=== PATIENT | female | born 1950 | race African-American/Black ===

== ENCOUNTER 2018-12-30 15:27 | Emergency (ER) | payer MEDICARE ==
[~2018-12-30] VITALS: Ht 160 cm; Wt 105.0 kg
[~2018-12-30 15:27] MED LIST: ACET-2502 PO; ALBU18HF2 IH; AMIT100T2 MT; AMLO2.5T45 PO; ASCO-339 MT; ASCO500C15 MT; ASPI-1393 MT; BACL-141 MT; BUSP15TA3 MT; CHOL200077 MT; DOCU50CA13 PO; DONE10TA11 MT; FERR325T6 MT; FOLI-43 MT; GLYB5TAB7 MT; HYDR2TAB4 MT; LEVE500T9 MT; LEVO100T PO; LIP40 MT; LURA80TA MT; MELO-106 MT; METF-416 MT; METO25TA6 PO; NEOM1PAC2 TP; NICO-681 TD; NICO-786 TD; NITR0.4T49 SL; PANT40TA4 MT; PREG75CA MT; SUCR1TAB MT; TOPI50TA24 MT; VENL75CA55 MT
[2018-12-30] MEDS ORDERED: HYDROCODONE/ACETAMINOPHEN 10/325MG TABLET PO ONE (18:15)
[2018-12-30] MEDS ORDERED: VENLAFAXINE HCL 50MG TABLET PO ONE (21:00)
[2018-12-30] MEDS ORDERED: AMITRIPTYLINE 25MG TABLET PO ONE (21:00)
[2018-12-31 08:59] VITALS: BP 145/66
== END 2018-12-31 09:02 | disposition home or self-care (01) ==
LOC: ER 15:27
DX: R07.89 Other chest pain (principal); R26.2 Difficulty in walking, not elsewhere classified; Z59.0 Homelessness; F17.200 Nicotine dependence, unspecified, uncomplicated; F12.10 Cannabis abuse, uncomplicated; E11.9 Type 2 diabetes mellitus without complications; I10 Essential (primary) hypertension; I25.2 Old myocardial infarction; Z86.73 Personal history of transient ischemic attack (TIA), and cerebral infarction without residual deficits; Z90.89 Acquired absence of other organs; E03.9 Hypothyroidism, unspecified; Z79.82 Long term (current) use of aspirin; Z79.899 Other long term (current) drug therapy; Z88.5 Allergy status to narcotic agent; Z88.6 Allergy status to analgesic agent; Z88.2 Allergy status to sulfonamides; Z88.0 Allergy status to penicillin
CPT/HCPCS: 82962; 99284

== ENCOUNTER 2019-03-23 16:24 | Inpatient (IN) | payer MEDICARE, MEDICAID ==
[~2019-03-23] VITALS: Ht 160 cm; Wt 106.6 kg
[2019-03-23] MEDS ORDERED: LEVOFLOXACIN 750MG PREMIX 150 ML IV ONE (17:00)
[2019-03-23] MEDS ORDERED: SODIUM CHLORIDE 0.9% 1000ML BAG (SEPSIS BOLUS) IV ONE (17:00)
[2019-03-23 17:37] LABS: BASOPHILS % 0.7 % (0.0-2.0); EOSINOPHILS % 2.5 % (0.0-5.0); HEMATOCRIT. 44.4 % (36.0-48.0); HEMOGLOBIN. 14.7 g/dL (12.0-16.0); LYMPHOCYTES % 27.4 % (20.0-50.0); MEAN CORPUSCULAR HEMOGLOBIN 30.2 pg (28.0-32.0); MEAN CORPUSCULAR VOLUME 91.5 fL (81.0-99.0); MEAN PLATELET VOLUME 8.9 fl (7.4-10.4); MONOCYTES % 7.8 % (2.0-8.0); NEUTROPHILS % 61.6 % (40.0-76.0); PLATELET 299 x1000/uL (130-400); RED BLOOD CELL COUNT 4.86 mill/uL (4.2-5.4); RED CELL DISTRIBUTION WIDTH 16.9 % (11.6-14.6)
[2019-03-23 17:41] LABS: CHLORIDE 105 mEq/L (98-107)
[2019-03-23] MEDS ORDERED: MORPHINE SULFATE 4 MG/ML CPJ (NOT FOR IM USE) IV STA (17:44)
[2019-03-23] MEDS ORDERED: ONDANSETRON HCL 4MG/2ML INJ IV STA (17:44)
[2019-03-23] MEDS ORDERED: NITROGLYCERIN 0.4MG TABLET SL SL PRN (17:45)
[2019-03-23 17:47] LABS: D-DIMER 0.23 mg/L FEU (<0.50); PARTIAL THROMBOPLASTIN TIME 24.1 sec (23.4-31.0); PROTHROMBIN TIME 10.1 sec (9.6-11.0)
[2019-03-23] MEDS ORDERED: POTASSIUM CHLORIDE 20MEQ TABLET SR PO ONE (18:00)
[2019-03-23] MEDS ORDERED: CLOPIDOGREL 75MG TABLET PO ONE (18:00)
[2019-03-23] MEDS ORDERED: ALBUTEROL (0.083%) 2.5MG/3ML NEB HHN STA (18:32)
[2019-03-23 22:05] VITALS: BP 152/84
[2019-03-23 23:00] VITALS: BP 152/84
[2019-03-23] MEDS ORDERED: DEXTROSE 50% WATER 50ML SYRINGE IV PRN (23:45)
[2019-03-24] VITALS (8 sets, daily range): BP systolic 133–188; BP diastolic 45–164
[2019-03-24] MEDS ORDERED: ACETAMINOPHEN 325MG TABLET PO PRN (00:15)
[2019-03-24] MEDS ORDERED: MORPHINE SULFATE 2 MG/ML CPJ (NOT FOR IM USE) IV PRN (00:15)
[2019-03-24] MEDS: DIPHENHYDRAMINE 50MG/ML VIAL IV PRN ×2 (00:40→07:03)
[2019-03-24] MEDS: THIAMINE HCL 100MG TABLET PO SCH ×2 (00:40→11:33)
[2019-03-24] MEDS: ONDANSETRON HCL 4MG/2ML INJ IV PRN ×3 (00:40→20:58)
[2019-03-24] MEDS: HYDROCODONE/ACETAMINOPHEN 5/325MG TABLET PO PRN ×2 (00:44→07:02)
[2019-03-24] MEDS: IPRATROPIUM/ALBUTEROL 0.5-3(2.5)MG/3ML NEB NEB PRN (06:50)
[2019-03-24] MEDS: BLOOD SUGAR DIAGNOSTIC STRIP TEST SCH ×4 (07:03→20:59)
[2019-03-24] MEDS: INSULIN LISPRO 100 UNITS/ML SUBCUT SCH ×4 (07:50→21:33)
[2019-03-24 08:03] LABS: CREATINE KINASE 164 IU/L (26-192)
[2019-03-24 08:04] LABS: CREATINE KINASE MB FRACTION 2.6 ng/mL (0.5-3.6)
[2019-03-24] MEDS ORDERED: HYDROMORPHONE HCL/PF 2MG/ML CPJ IV NR (10:30)
[2019-03-24] MEDS: FOLIC ACID 1MG TABLET PO SCH (11:33)
[2019-03-24] MEDS: ASPIRIN 81MG EC TABLET PO SCH (11:33)
[2019-03-24] MEDS ORDERED: HYDROMORPHONE HCL 2MG TABLET PO PRN (13:00)
[2019-03-24 13:19] LABS: BASOPHILS % 0.8 % (0.0-2.0); HEMATOCRIT. 39.8 % (36.0-48.0); HEMOGLOBIN. 12.8 g/dL (12.0-16.0); LYMPHOCYTES % 26.5 % (20.0-50.0); MEAN CORPUSCULAR HEMOGLOBIN 29.7 pg (28.0-32.0); MEAN CORPUSCULAR VOLUME 92.6 fL (81.0-99.0); MONOCYTES % 9.5 % (2.0-8.0); NEUTROPHILS % 59.2 % (40.0-76.0); PLATELET 252 x1000/uL (130-400); RED BLOOD CELL COUNT 4.29 mill/uL (4.2-5.4); RED CELL DISTRIBUTION WIDTH 16.4 % (11.6-14.6)
[2019-03-24] MEDS ORDERED: DOCUSATE SODIUM 100MG CAPSULE PO PRN (15:00)
[2019-03-24] MEDS ORDERED: DONEPEZIL HCL 10MG TABLET PO NR (15:00)
[2019-03-24] MEDS: LEVOFLOXACIN 750MG PREMIX 150 ML IV SCH (16:25)
[2019-03-24] MEDS: NICOTINE 14MG PATCH TD SCH (16:25)
[2019-03-24 20:52] LABS: CREATINE KINASE 151 IU/L (26-192)
[2019-03-24 20:54] LABS: CREATINE KINASE MB FRACTION 1.7 ng/mL (0.5-3.6)
[2019-03-24] MEDS: MAGNESIUM/ALUMINUM HYDROXIDE/SIMETHICONE 30ML UDC PO PRN (20:56)
[2019-03-24] MEDS: AMITRIPTYLINE 25MG TABLET PO SCH (20:57)
[2019-03-24] MEDS: BUSPIRONE HCL 10MG TABLET PO SCH (20:58)
[2019-03-24] MEDS: ATORVASTATIN CALCIUM 40MG TABLET PO SCH (20:58)
[2019-03-24] MEDS ORDERED: LEVETIRACETAM 500MG/5ML CUP PO SCH (21:00)
[2019-03-24] MEDS: PANTOPRAZOLE 40MG DR TABLET PO SCH (21:32)
[2019-03-24] MEDS: BENZONATATE 100MG CAPSULE PO PRN (21:32)
[2019-03-24] MEDS: LEVETIRACETAM 500MG TABLET PO SCH (21:32)
[2019-03-24 22:46] LABS: CLARITY URINE CLEAR (CLEAR); COLOR URINE YELLOW (YELLOW); KETONES URINE NEGATIVE (NEGATIVE); LEUKOCYTE ESTERASE URINE NEGATIVE (NEGATIVE); NITRITE URINE NEGATIVE (NEGATIVE); OCCULT BLOOD URINE NEGATIVE (NEGATIVE); PH URINE 5.5 (4.5-8.0); PROTEIN URINE TRACE (NEGATIVE); SPECIFIC GRAVITY URINE 1.024 (1.005-1.030)
[2019-03-24 23:01] LABS: *COCAINE SCREEN URINE NEGATIVE (NEGATIVE); METHADONE URINE SCREEN NEGATIVE (NEGATIVE)
[2019-03-24 23:02] LABS: *AMPHETAMINES SCREEN URINE NEGATIVE (NEGATIVE); *BARBITURATES SCREEN URINE NEGATIVE (NEGATIVE); *BENZODIAZEPINES SCREEN URINE NEGATIVE (NEGATIVE); CANNABINOID URINE SCREEN PRESUMTIVE POSITIVE (NEGATIVE); OPIATES URINE SCREEN PRESUMTIVE POSITIVE (NEGATIVE); PHENCYCLIDINE URINE SCREEN NEGATIVE (NEGATIVE)
[2019-03-25] VITALS: BP 120/60
[2019-03-25] MEDS: IPRATROPIUM/ALBUTEROL 0.5-3(2.5)MG/3ML NEB NEB PRN ×2 (01:03→08:14)
[2019-03-25 04:00] VITALS: BP 133/69
[2019-03-25 06:41] LABS: HEMATOCRIT. 37.4 % (36.0-48.0); HEMOGLOBIN. 12.1 g/dL (12.0-16.0); MEAN CORPUSCULAR HEMOGLOBIN 29.9 pg (28.0-32.0); MEAN CORPUSCULAR VOLUME 92.1 fL (81.0-99.0); MEAN PLATELET VOLUME 9.5 fl (7.4-10.4); PLATELET 246 x1000/uL (130-400); RED BLOOD CELL COUNT 4.06 mill/uL (4.2-5.4); RED CELL DISTRIBUTION WIDTH 16.5 % (11.6-14.6)
[2019-03-25] MEDS: PANTOPRAZOLE 40MG DR TABLET PO SCH (06:45)
[2019-03-25] MEDS: LEVOTHYROXINE SODIUM 100MCG TABLET PO SCH (06:45)
[2019-03-25] MEDS: BENZONATATE 100MG CAPSULE PO PRN ×2 (06:45→22:31)
[2019-03-25] MEDS: BLOOD SUGAR DIAGNOSTIC STRIP TEST SCH ×3 (06:46→21:00)
[2019-03-25] MEDS: INSULIN LISPRO 100 UNITS/ML SUBCUT SCH ×3 (07:50→21:00)
[2019-03-25 08:09] VITALS: BP 134/63
[2019-03-25] MEDS: ASPIRIN 81MG EC TABLET PO SCH (09:42)
[2019-03-25] MEDS: TOPIRAMATE 25MG TABLET PO SCH (09:42)
[2019-03-25] MEDS: BUSPIRONE HCL 10MG TABLET PO SCH ×2 (09:42→21:57)
[2019-03-25] MEDS: DONEPEZIL HCL 10MG TABLET PO SCH (09:43)
[2019-03-25] MEDS: THIAMINE HCL 100MG TABLET PO SCH (09:43)
[2019-03-25] MEDS: LEVETIRACETAM 500MG TABLET PO SCH ×2 (09:43→21:57)
[2019-03-25] MEDS: FOLIC ACID 1MG TABLET PO SCH (09:43)
[2019-03-25] MEDS: AMLODIPINE 2.5MG TABLET PO SCH (09:46)
[2019-03-25] MEDS: VENLAFAXINE HCL 37.5MG SR CAPSULE 24HR PO SCH (09:46)
[2019-03-25] MEDS: NICOTINE 14MG PATCH TD SCH (09:47)
[2019-03-25 10:09] LABS: PLATELET ESTIMATE NORMAL
[2019-03-25 12:00] VITALS: BP 166/84
[2019-03-25] MEDS ORDERED: POTASSIUM CHLORIDE 20MEQ TABLET SR PO SCH (12:00)
[2019-03-25] MEDS ORDERED: LORAZEPAM 2MG/ML CPJ IV SCH (14:30)
[2019-03-25] MEDS: IPRATROPIUM/ALBUTEROL 0.5-3(2.5)MG/3ML NEB HHN SCH ×2 (16:02→20:55)
[2019-03-25 16:45] VITALS: BP 138/63
[2019-03-25] MEDS: LEVOFLOXACIN 750MG PREMIX 150 ML IV SCH (17:01)
[2019-03-25 20:00] VITALS: BP 129/70
[2019-03-25] MEDS: ATORVASTATIN CALCIUM 40MG TABLET PO SCH (21:57)
[2019-03-25] MEDS: AMITRIPTYLINE 25MG TABLET PO SCH (21:58)
[2019-03-25] MEDS: MAGNESIUM/ALUMINUM HYDROXIDE/SIMETHICONE 30ML UDC PO PRN ×2 (22:21→22:28)
[2019-03-26] VITALS: BP 138/62
[2019-03-26] MEDS: IPRATROPIUM/ALBUTEROL 0.5-3(2.5)MG/3ML NEB HHN SCH ×4 (00:43→15:07)
[2019-03-26 04:00] VITALS: BP 134/67
[2019-03-26] MEDS: BLOOD SUGAR DIAGNOSTIC STRIP TEST SCH ×3 (06:37→17:17)
[2019-03-26] MEDS: PANTOPRAZOLE 40MG DR TABLET PO SCH (06:38)
[2019-03-26] MEDS: LEVOTHYROXINE SODIUM 100MCG TABLET PO SCH (06:38)
[2019-03-26] MEDS: INSULIN LISPRO 100 UNITS/ML SUBCUT SCH ×3 (07:50→17:17)
[2019-03-26 08:00] VITALS: BP 115/37
[2019-03-26] MEDS: NICOTINE 14MG PATCH TD SCH (08:48)
[2019-03-26] MEDS: THIAMINE HCL 100MG TABLET PO SCH (08:49)
[2019-03-26] MEDS: BUSPIRONE HCL 10MG TABLET PO SCH (08:49)
[2019-03-26] MEDS: VENLAFAXINE HCL 37.5MG SR CAPSULE 24HR PO SCH (08:49)
[2019-03-26] MEDS: ASPIRIN 81MG EC TABLET PO SCH (08:50)
[2019-03-26] MEDS: FOLIC ACID 1MG TABLET PO SCH (08:50)
[2019-03-26] MEDS: LEVETIRACETAM 500MG TABLET PO SCH (08:51)
[2019-03-26] MEDS: TOPIRAMATE 25MG TABLET PO SCH (08:52)
[2019-03-26] MEDS: AMLODIPINE 2.5MG TABLET PO SCH (08:52)
[2019-03-26] MEDS: DONEPEZIL HCL 10MG TABLET PO SCH (08:52)
[2019-03-26] MEDS: BENZONATATE 100MG CAPSULE PO PRN (11:34)
[2019-03-26 12:11] VITALS: BP 112/48
[2019-03-26] MEDS ORDERED: TOPI50TA24 MT (14:15)
[2019-03-26] MEDS ORDERED: AMLO2.5T45 PO (14:15)
[2019-03-26] MEDS ORDERED: SUCR1TAB MT (14:15)
[2019-03-26] MEDS ORDERED: LIP40 MT (14:15)
[2019-03-26] MEDS ORDERED: ASPI-1393 MT (14:15)
[2019-03-26] MEDS ORDERED: LURA80TA MT (14:15)
[2019-03-26] MEDS ORDERED: GLYB5TAB7 MT (14:15)
[2019-03-26] MEDS ORDERED: DOCU50CA13 PO (14:15)
[2019-03-26] MEDS ORDERED: PANT40TA4 MT (14:15)
[2019-03-26] MEDS ORDERED: ASCO-339 MT (14:15)
[2019-03-26] MEDS ORDERED: PREG75CA MT (14:15)
[2019-03-26] MEDS ORDERED: BUSP15TA3 MT (14:15)
[2019-03-26] MEDS ORDERED: ALBU18HF2 IH (14:15)
[2019-03-26] MEDS ORDERED: ACET-2502 PO (14:15)
[2019-03-26] MEDS ORDERED: NICO-786 TD (14:15)
[2019-03-26] MEDS ORDERED: METF-416 MT (14:15)
[2019-03-26] MEDS ORDERED: AMIT100T2 MT (14:15)
[2019-03-26] MEDS ORDERED: VENL75CA55 MT (14:15)
[2019-03-26] MEDS ORDERED: NICO-681 TD (14:15)
[2019-03-26] MEDS ORDERED: CHOL200077 MT (14:15)
[2019-03-26] MEDS ORDERED: MELO-106 MT (14:15)
[2019-03-26] MEDS ORDERED: DONE10TA11 MT (14:15)
[2019-03-26] MEDS ORDERED: LEVO100T PO (14:15)
[2019-03-26] MEDS ORDERED: LEVE500T9 MT (14:15)
[2019-03-26] MEDS: HYDROCODONE/ACETAMINOPHEN 5/325MG TABLET PO PRN (16:05)
[2019-03-26 16:18] VITALS: BP 108/47
[2019-03-26 16:33] VITALS: BP 108/47
[2019-03-26] MEDS: LEVOFLOXACIN 750MG PREMIX 150 ML IV SCH (17:00)
[2019-03-26] MEDS: IPRATROPIUM/ALBUTEROL 0.5-3(2.5)MG/3ML NEB NEB PRN (17:09)
== END 2019-03-26 17:52 | disposition home health service (06) | DRG 189 ==
LOC: ER 16:24 → 6WST 18:33 → EDBEDREQTM 18:38 → ENRESERV 20:58
PROVIDERS: ADMIT Internal Medicine; ATTEND Internal Medicine
DX: J96.00 Acute respiratory failure, unspecified whether with hypoxia or hypercapnia (principal); E87.2 Acidosis; Z68.41 Body mass index [BMI] 40.0-44.9, adult; J44.9 Chronic obstructive pulmonary disease, unspecified; E03.9 Hypothyroidism, unspecified; E11.9 Type 2 diabetes mellitus without complications; E78.5 Hyperlipidemia, unspecified; E87.6 Hypokalemia; F03.90 Unspecified dementia, unspecified severity, without behavioral disturbance, psychotic disturbance, mood disturbance, and anxiety; F17.210 Nicotine dependence, cigarettes, uncomplicated; G40.909 Epilepsy, unspecified, not intractable, without status epilepticus; E66.01 Morbid (severe) obesity due to excess calories; I10 Essential (primary) hypertension; I25.2 Old myocardial infarction; Z86.73 Personal history of transient ischemic attack (TIA), and cerebral infarction without residual deficits; Z88.2 Allergy status to sulfonamides; Z88.0 Allergy status to penicillin; Z88.5 Allergy status to narcotic agent; Z88.9 Allergy status to unspecified drugs, medicaments and biological substances; Z71.6 Tobacco abuse counseling; Z71.3 Dietary counseling and surveillance; Z79.84 Long term (current) use of oral hypoglycemic drugs
CPT/HCPCS: 36415; 71045; 72148; 80048; 80305; 81003; 82550; 82553; 82962; 83605; 84145; 84484; 85379; 87804; 93005; 93923; 94640; 96361; 96374; 97162; 99291; C1893; J1170; J1200; J1815; J1956; J2060; J2270; J2405; J7030; J7040; J7611; J7620

== ENCOUNTER 2019-11-12 17:10 | Inpatient (IN) | payer MEDICARE, MEDICAID ==
[~2019-11-12] VITALS: Ht 157.5 cm; Wt 101.2 kg
[~2019-11-12 17:10] MED LIST changes: -ACET-2502 PO; +ACET650T7 PO; -ASPI-1393 MT; +ASPI-1497 MT; +ATOR-2 PO; +CARV3.1242 PO; +FLUC150T41 PO; +LORA-249 PO
[2019-11-12] MEDS ORDERED: ONDANSETRON HCL 4MG/2ML INJ IV PRN (18:00)
[2019-11-12] MEDS ORDERED: ACETAMINOPHEN 650MG/20.3ML UDC PO PRN (18:00)
[2019-11-12] MEDS ORDERED: ALBUTEROL (0.083%) 2.5MG/3ML NEB HHN PRN (18:00)
[2019-11-12 19:30] VITALS: BP 125/66
[2019-11-12 20:00] VITALS: BP 125/66
[2019-11-12] MEDS: DONEPEZIL HCL 10MG TABLET PO SCH (22:02)
[2019-11-12] MEDS: AMITRIPTYLINE 25MG TABLET PO SCH (22:02)
[2019-11-12] MEDS: ATORVASTATIN CALCIUM 40MG TABLET PO SCH (22:03)
[2019-11-12] MEDS: ENOXAPARIN 30MG/0.3ML SYR SUBCUT SCH (22:04)
[2019-11-12] MEDS: CARVEDILOL 3.125 MG TABLET PO SCH (22:04)
[2019-11-12] MEDS: HYDROCODONE/ACETAMINOPHEN 10/325MG TABLET PO PRN (22:05)
[2019-11-13 07:18] LABS: BASOPHILS % 0.6 % (0.0-2.0); EOSINOPHILS % 5.3 % (0.0-5.0); HEMATOCRIT. 41.6 % (36.0-48.0); HEMOGLOBIN. 13.7 g/dL (12.0-16.0); LYMPHOCYTES % 34.3 % (20.0-50.0); MEAN CORPUSCULAR HEMOGLOBIN 30.2 pg (28.0-32.0); MEAN CORPUSCULAR VOLUME 91.5 fL (81.0-99.0); MEAN PLATELET VOLUME 9.4 fl (7.4-10.4); MONOCYTES % 11.9 % (2.0-8.0); NEUTROPHILS % 47.9 % (40.0-76.0); PLATELET 208 x1000/uL (130-400); RED BLOOD CELL COUNT 4.55 mill/uL (4.2-5.4); RED CELL DISTRIBUTION WIDTH 17.2 % (11.6-14.6)
[2019-11-13] MEDS: GLYBURIDE 5MG TABLET PO SCH (07:31)
[2019-11-13] MEDS: LEVOTHYROXINE SODIUM 50MCG TABLET PO SCH (07:31)
[2019-11-13 08:16] VITALS: BP 159/65
[2019-11-13 08:27] LABS: CHLORIDE 107 mEq/L (98-107)
[2019-11-13] MEDS: LACTULOSE 20G/30ML UDC PO SCH ×4 (09:00→17:00)
[2019-11-13] MEDS: ASCORBIC ACID 500 MG TABLET PO SCH (09:49)
[2019-11-13] MEDS: GABAPENTIN 300MG CAPSULE PO SCH (09:50)
[2019-11-13] MEDS: CYANOCOBALAMIN 1000MCG TABLET PO SCH (09:50)
[2019-11-13] MEDS: CARVEDILOL 3.125 MG TABLET PO SCH ×2 (09:50→22:28)
[2019-11-13] MEDS: ASPIRIN 81MG TABLET PO SCH (09:51)
[2019-11-13] MEDS: ENOXAPARIN 30MG/0.3ML SYR SUBCUT SCH (09:52)
[2019-11-13] MEDS: HYDROCODONE/ACETAMINOPHEN 10/325MG TABLET PO PRN ×2 (10:03→21:22)
[2019-11-13 20:00] VITALS: BP 141/70
[2019-11-13] MEDS: DONEPEZIL HCL 10MG TABLET PO SCH (21:21)
[2019-11-13] MEDS: AMITRIPTYLINE 25MG TABLET PO SCH (21:21)
[2019-11-13] MEDS: ATORVASTATIN CALCIUM 40MG TABLET PO SCH (21:21)
[2019-11-14] MEDS: LEVOTHYROXINE SODIUM 50MCG TABLET PO SCH (06:58)
[2019-11-14] MEDS: GLYBURIDE 5MG TABLET PO SCH (06:58)
[2019-11-14 08:00] VITALS: BP 135/62
[2019-11-14] MEDS: ENOXAPARIN 40MG/0.4ML SYR SUBCUT SCH (08:44)
[2019-11-14] MEDS: GABAPENTIN 300MG CAPSULE PO SCH ×2 (08:45→21:20)
[2019-11-14] MEDS: ASCORBIC ACID 500 MG TABLET PO SCH (08:53)
[2019-11-14] MEDS: ASPIRIN 81MG TABLET PO SCH (08:54)
[2019-11-14] MEDS: CARVEDILOL 3.125 MG TABLET PO SCH ×2 (08:54→21:00)
[2019-11-14] MEDS: CYANOCOBALAMIN 1000MCG TABLET PO SCH (11:57)
[2019-11-14 13:26] LABS: CLARITY URINE CLEAR (CLEAR); COLOR URINE YELLOW (YELLOW); KETONES URINE NEGATIVE (NEGATIVE); LEUKOCYTE ESTERASE URINE NEGATIVE (NEGATIVE); NITRITE URINE NEGATIVE (NEGATIVE); OCCULT BLOOD URINE NEGATIVE (NEGATIVE); PH URINE 5.5 (4.5-8.0); PROTEIN URINE NEGATIVE (NEGATIVE); SPECIFIC GRAVITY URINE 1.009 (1.005-1.030); UROBILINOGEN URINE 0.2 E.U./dL (0.2-1.0)
[2019-11-14] MEDS: KETOROLAC 15MG/ML VIAL IV PRN ×2 (14:18→21:46)
[2019-11-14] MEDS: FAMOTIDINE 20MG TABLET PO SCH (16:43)
[2019-11-14 20:00] VITALS: BP 160/69
[2019-11-14] MEDS: ATORVASTATIN CALCIUM 40MG TABLET PO SCH (21:13)
[2019-11-14] MEDS: AMITRIPTYLINE 25MG TABLET PO SCH (21:19)
[2019-11-14] MEDS: DONEPEZIL HCL 10MG TABLET PO SCH (21:19)
[2019-11-14] MEDS: HYDROCODONE/ACETAMINOPHEN 10/325MG TABLET PO PRN (21:30)
[2019-11-15] MEDS: GLYBURIDE 5MG TABLET PO SCH (06:44)
[2019-11-15] MEDS: LEVOTHYROXINE SODIUM 50MCG TABLET PO SCH (06:44)
[2019-11-15 07:11] LABS: HEMATOCRIT. 36.6 % (36.0-48.0); MEAN CORPUSCULAR HEMOGLOBIN 29.5 pg (28.0-32.0); MEAN CORPUSCULAR VOLUME 89.9 fL (81.0-99.0); MEAN PLATELET VOLUME 8.9 fl (7.4-10.4); PLATELET 248 x1000/uL (130-400); RED BLOOD CELL COUNT 4.08 mill/uL (4.2-5.4); RED CELL DISTRIBUTION WIDTH 16.8 % (11.6-14.6)
[2019-11-15 07:21] LABS: PHOSPHORUS 3.9 mg/dL (2.5-4.9)
[2019-11-15] MEDS: KETOROLAC 15MG/ML VIAL IV PRN (07:48)
[2019-11-15 08:00] VITALS: BP 164/77
[2019-11-15 08:30] LABS: FOLIC ACID (FOLATE) SERUM 11.4 ng/mL (>5.38)
[2019-11-15] MEDS: CYANOCOBALAMIN 1000MCG TABLET PO SCH (09:10)
[2019-11-15] MEDS: ASCORBIC ACID 500 MG TABLET PO SCH (09:10)
[2019-11-15] MEDS: CARVEDILOL 3.125 MG TABLET PO SCH ×2 (09:10→21:07)
[2019-11-15] MEDS: ASPIRIN 81MG TABLET PO SCH (09:10)
[2019-11-15] MEDS: FAMOTIDINE 20MG TABLET PO SCH ×2 (09:10→16:58)
[2019-11-15] MEDS: ENOXAPARIN 40MG/0.4ML SYR SUBCUT SCH (09:11)
[2019-11-15 13:58] LABS: PLATELET ESTIMATE NORMAL
[2019-11-15] MEDS: HYDROCODONE/ACETAMINOPHEN 10/325MG TABLET PO PRN ×2 (14:32→22:18)
[2019-11-15] MEDS: CYANOCOBALAMIN 1000MCG/ML VIAL IM SCH (15:39)
[2019-11-15 19:00] VITALS: BP 152/58
[2019-11-15] MEDS: GABAPENTIN 300MG CAPSULE PO SCH (21:07)
[2019-11-15] MEDS: AMITRIPTYLINE 25MG TABLET PO SCH (21:07)
[2019-11-15] MEDS: DONEPEZIL HCL 10MG TABLET PO SCH (21:08)
[2019-11-15] MEDS: ATORVASTATIN CALCIUM 40MG TABLET PO SCH (21:08)
[2019-11-16] MEDS: LEVOTHYROXINE SODIUM 50MCG TABLET PO SCH (06:55)
[2019-11-16] MEDS: GLYBURIDE 5MG TABLET PO SCH (06:55)
[2019-11-16 08:00] VITALS: BP 156/79
[2019-11-16] MEDS: ASPIRIN 81MG TABLET PO SCH (08:33)
[2019-11-16] MEDS: FAMOTIDINE 20MG TABLET PO SCH ×2 (08:33→16:52)
[2019-11-16] MEDS: ASCORBIC ACID 500 MG TABLET PO SCH (08:33)
[2019-11-16] MEDS: CARVEDILOL 3.125 MG TABLET PO SCH ×2 (08:33→21:00)
[2019-11-16] MEDS: CYANOCOBALAMIN 1000MCG/ML VIAL IM SCH (08:34)
[2019-11-16] MEDS: ENOXAPARIN 40MG/0.4ML SYR SUBCUT SCH (08:34)
[2019-11-16] MEDS ORDERED: NA PHOS,M-B/NA PHOS,DI-BA ENEMA 118ML PR PRN (14:15)
[2019-11-16] MEDS ORDERED: LACTULOSE 20G/30ML UDC PO PRN (14:15)
[2019-11-16] MEDS ORDERED: BISACODYL 5MG TABLET PO PRN (14:15)
[2019-11-16 15:15] VITALS: BP 153/69
[2019-11-16] MEDS: HYDROCODONE/ACETAMINOPHEN 10/325MG TABLET PO PRN ×3 (15:20→23:51)
[2019-11-16 20:00] VITALS: BP 197/91
[2019-11-16] MEDS: DONEPEZIL HCL 10MG TABLET PO SCH (21:27)
[2019-11-16] MEDS: AMITRIPTYLINE 25MG TABLET PO SCH (21:27)
[2019-11-16] MEDS: GABAPENTIN 300MG CAPSULE PO SCH (21:27)
[2019-11-16] MEDS: ATORVASTATIN CALCIUM 40MG TABLET PO SCH (21:27)
[2019-11-17 05:49] LABS: BASOPHILS % 0.5 % (0.0-2.0); EOSINOPHILS % 2.4 % (0.0-5.0); HEMATOCRIT. 36.3 % (36.0-48.0); LYMPHOCYTES % 24.9 % (20.0-50.0); MEAN CORPUSCULAR HEMOGLOBIN 29.8 pg (28.0-32.0); MEAN CORPUSCULAR VOLUME 89.8 fL (81.0-99.0); MEAN PLATELET VOLUME 9.4 fl (7.4-10.4); MONOCYTES % 10.5 % (2.0-8.0); NEUTROPHILS % 61.7 % (40.0-76.0); PLATELET 238 x1000/uL (130-400); RED BLOOD CELL COUNT 4.04 mill/uL (4.2-5.4); RED CELL DISTRIBUTION WIDTH 16.4 % (11.6-14.6)
[2019-11-17 06:14] LABS: CHLORIDE 103 mEq/L (98-107)
[2019-11-17] MEDS: LEVOTHYROXINE SODIUM 50MCG TABLET PO SCH (06:26)
[2019-11-17] MEDS: GLYBURIDE 5MG TABLET PO SCH (06:26)
[2019-11-17 08:04] VITALS: BP 183/78
[2019-11-17 08:06] VITALS: BP 117/49
[2019-11-17] MEDS: ASCORBIC ACID 500 MG TABLET PO SCH (09:08)
[2019-11-17] MEDS: CYANOCOBALAMIN 1000MCG/ML VIAL IM SCH (09:08)
[2019-11-17] MEDS: ASPIRIN 81MG TABLET PO SCH (09:08)
[2019-11-17] MEDS: ENOXAPARIN 40MG/0.4ML SYR SUBCUT SCH (09:08)
[2019-11-17] MEDS: FAMOTIDINE 20MG TABLET PO SCH ×2 (09:08→16:11)
[2019-11-17] MEDS: CARVEDILOL 3.125 MG TABLET PO SCH ×2 (09:08→21:15)
[2019-11-17] MEDS: HYDROCODONE/ACETAMINOPHEN 10/325MG TABLET PO PRN ×3 (11:22→20:36)
[2019-11-17 20:00] VITALS: BP 178/64
[2019-11-17] MEDS: DONEPEZIL HCL 10MG TABLET PO SCH (20:36)
[2019-11-17] MEDS: GABAPENTIN 300MG CAPSULE PO SCH (20:36)
[2019-11-17] MEDS: ATORVASTATIN CALCIUM 40MG TABLET PO SCH (20:37)
[2019-11-17] MEDS: AMITRIPTYLINE 25MG TABLET PO SCH (20:51)
[2019-11-17] MEDS: LACTULOSE 20G/30ML UDC PO SCH (22:00)
[2019-11-17] MEDS: ONDANSETRON HCL 4MG TABLET PO PRN (22:26)
[2019-11-17 22:30] VITALS: BP 145/62
[2019-11-18] MEDS: GLYBURIDE 5MG TABLET PO SCH (06:14)
[2019-11-18] MEDS: LACTULOSE 20G/30ML UDC PO SCH ×3 (06:14→21:34)
[2019-11-18] MEDS: LEVOTHYROXINE SODIUM 50MCG TABLET PO SCH (06:14)
[2019-11-18] MEDS: HYDROCODONE/ACETAMINOPHEN 10/325MG TABLET PO PRN ×2 (06:34→12:36)
[2019-11-18 07:57] VITALS: BP 154/70
[2019-11-18] MEDS: CARVEDILOL 3.125 MG TABLET PO SCH ×2 (08:35→21:27)
[2019-11-18] MEDS: ASCORBIC ACID 500 MG TABLET PO SCH (08:35)
[2019-11-18] MEDS: ENOXAPARIN 30MG/0.3ML SYR SUBCUT SCH ×2 (08:35→21:28)
[2019-11-18] MEDS: FAMOTIDINE 20MG TABLET PO SCH ×2 (08:35→16:42)
[2019-11-18] MEDS: ASPIRIN 81MG TABLET PO SCH (08:35)
[2019-11-18] MEDS: CYANOCOBALAMIN 1000MCG/ML VIAL IM SCH (08:36)
[2019-11-18 17:10] LABS: 25-HYDROXY VITAMIN D3 28 ng/mL (.)
[2019-11-18 20:00] VITALS: BP 135/64
[2019-11-18] MEDS: ONDANSETRON HCL 4MG TABLET PO PRN (21:20)
[2019-11-18] MEDS: GABAPENTIN 300MG CAPSULE PO SCH (21:26)
[2019-11-18] MEDS: DONEPEZIL HCL 10MG TABLET PO SCH (21:27)
[2019-11-18] MEDS: ATORVASTATIN CALCIUM 40MG TABLET PO SCH (21:27)
[2019-11-18] MEDS: AMITRIPTYLINE 25MG TABLET PO SCH (21:28)
[2019-11-19] MEDS: GLYBURIDE 5MG TABLET PO SCH (06:22)
[2019-11-19] MEDS: LACTULOSE 20G/30ML UDC PO SCH ×3 (06:22→22:17)
[2019-11-19] MEDS: LEVOTHYROXINE SODIUM 50MCG TABLET PO SCH (06:23)
[2019-11-19 08:00] VITALS: BP 122/71
[2019-11-19 08:18] VITALS: BP 107/61
[2019-11-19] MEDS: FAMOTIDINE 20MG TABLET PO SCH ×2 (09:24→16:36)
[2019-11-19] MEDS: ASPIRIN 81MG TABLET PO SCH (09:25)
[2019-11-19] MEDS: ENOXAPARIN 30MG/0.3ML SYR SUBCUT SCH ×2 (09:25→21:58)
[2019-11-19] MEDS: ASCORBIC ACID 500 MG TABLET PO SCH (09:25)
[2019-11-19] MEDS: CARVEDILOL 3.125 MG TABLET PO SCH ×2 (09:26→21:55)
[2019-11-19] MEDS: CYANOCOBALAMIN 1000MCG/ML VIAL IM SCH (09:28)
[2019-11-19] MEDS ORDERED: ERGOCALCIFEROL 50000UNITS CAPSULE PO SCH (12:00)
[2019-11-19 15:41] LABS: HEPATITIS B SURFACE ANTIGEN NEGATIVE
[2019-11-19 16:11] LABS: HEPATITIS A AB IGM NEGATIVE (NEGATIVE)
[2019-11-19] MEDS: AMITRIPTYLINE 25MG TABLET PO SCH (21:00)
[2019-11-19] MEDS: HYDROCODONE/ACETAMINOPHEN 10/325MG TABLET PO PRN (21:54)
[2019-11-19] MEDS: ATORVASTATIN CALCIUM 40MG TABLET PO SCH (21:55)
[2019-11-19] MEDS: GABAPENTIN 300MG CAPSULE PO SCH (21:55)
[2019-11-19] MEDS: DONEPEZIL HCL 10MG TABLET PO SCH (21:55)
[2019-11-19 22:17] VITALS: BP 124/73
[2019-11-20] MEDS: GLYBURIDE 5MG TABLET PO SCH (06:28)
[2019-11-20] MEDS: LEVOTHYROXINE SODIUM 50MCG TABLET PO SCH (06:28)
[2019-11-20] MEDS: LACTULOSE 20G/30ML UDC PO SCH ×3 (06:29→23:11)
[2019-11-20 06:43] LABS: BASOPHILS % 0.5 % (0.0-2.0); EOSINOPHILS % 3.4 % (0.0-5.0); HEMATOCRIT. 36.4 % (36.0-48.0); LYMPHOCYTES % 36.3 % (20.0-50.0); MEAN CORPUSCULAR HEMOGLOBIN 29.9 pg (28.0-32.0); MEAN CORPUSCULAR VOLUME 90.8 fL (81.0-99.0); MEAN PLATELET VOLUME 9.6 fl (7.4-10.4); MONOCYTES % 12.6 % (2.0-8.0); NEUTROPHILS % 47.2 % (40.0-76.0); PLATELET 237 x1000/uL (130-400); RED BLOOD CELL COUNT 4.01 mill/uL (4.2-5.4); RED CELL DISTRIBUTION WIDTH 16.3 % (11.6-14.6)
[2019-11-20 06:45] LABS: CHLORIDE 101 mEq/L (98-107)
[2019-11-20 08:00] VITALS: BP 149/60
[2019-11-20] MEDS: ASPIRIN 81MG TABLET PO SCH (10:19)
[2019-11-20] MEDS: ASCORBIC ACID 500 MG TABLET PO SCH (10:19)
[2019-11-20] MEDS: CARVEDILOL 3.125 MG TABLET PO SCH ×2 (10:19→22:57)
[2019-11-20] MEDS: ENOXAPARIN 30MG/0.3ML SYR SUBCUT SCH ×2 (10:20→22:59)
[2019-11-20] MEDS: FAMOTIDINE 20MG TABLET PO SCH ×2 (11:39→16:33)
[2019-11-20 20:00] VITALS: BP 154/77
[2019-11-20] MEDS ORDERED: CALCIUM CARBONATE 500MG TABLET CHEW PO PRN (22:45)
[2019-11-20] MEDS: GABAPENTIN 300MG CAPSULE PO SCH (22:54)
[2019-11-20] MEDS: AMITRIPTYLINE 25MG TABLET PO SCH (22:56)
[2019-11-20] MEDS: ATORVASTATIN CALCIUM 40MG TABLET PO SCH (22:58)
[2019-11-20] MEDS: DONEPEZIL HCL 10MG TABLET PO SCH (23:05)
[2019-11-21] MEDS: LACTULOSE 20G/30ML UDC PO SCH ×3 (06:00→22:00)
[2019-11-21] MEDS: GLYBURIDE 5MG TABLET PO SCH (07:51)
[2019-11-21] MEDS: LEVOTHYROXINE SODIUM 50MCG TABLET PO SCH (07:51)
[2019-11-21 08:00] VITALS: BP 122/91
[2019-11-21] MEDS ORDERED: BUPIVACAINE HCL/PF 0.5% (5MG/ML) 10ML INFIL NR (08:15)
[2019-11-21] MEDS ORDERED: ETHYL CHLORIDE CAN TOP NR (08:15)
[2019-11-21] MEDS ORDERED: BUPIVACAINE HCL/PF 0.25% (2.5MG/ML) 10ML INFIL NR (08:15)
[2019-11-21] MEDS ORDERED: TRIAMCINOLONE ACETONIDE 40MG/ML 1ML VIAL INJ NR (08:15)
[2019-11-21] MEDS ORDERED: LIDOCAINE HCL 1% 20ML VIAL (Pyxis) INJ INFIL NR (08:15)
[2019-11-21] MEDS: ENOXAPARIN 30MG/0.3ML SYR SUBCUT SCH ×2 (09:45→21:23)
[2019-11-21] MEDS: FAMOTIDINE 20MG TABLET PO SCH ×2 (09:45→17:41)
[2019-11-21] MEDS: ASCORBIC ACID 500 MG TABLET PO SCH (09:45)
[2019-11-21] MEDS: ASPIRIN 81MG TABLET PO SCH (09:45)
[2019-11-21] MEDS: CARVEDILOL 3.125 MG TABLET PO SCH ×2 (09:45→21:22)
[2019-11-21 20:00] VITALS: BP 158/67
[2019-11-21] MEDS: HYDROCODONE/ACETAMINOPHEN 10/325MG TABLET PO PRN (20:04)
[2019-11-21] MEDS: DONEPEZIL HCL 10MG TABLET PO SCH (21:21)
[2019-11-21] MEDS: ATORVASTATIN CALCIUM 40MG TABLET PO SCH (21:22)
[2019-11-21] MEDS: GABAPENTIN 300MG CAPSULE PO SCH (21:22)
[2019-11-21] MEDS: AMITRIPTYLINE 25MG TABLET PO SCH (21:36)
[2019-11-22] MEDS: LACTULOSE 20G/30ML UDC PO SCH ×2 (06:00→13:27)
[2019-11-22] MEDS: GLYBURIDE 5MG TABLET PO SCH (06:21)
[2019-11-22] MEDS: LEVOTHYROXINE SODIUM 50MCG TABLET PO SCH (06:21)
[2019-11-22 08:00] VITALS: BP 128/60
[2019-11-22] MEDS: FAMOTIDINE 20MG TABLET PO SCH ×2 (08:56→16:34)
[2019-11-22] MEDS: ASPIRIN 81MG TABLET PO SCH (08:56)
[2019-11-22] MEDS: ASCORBIC ACID 500 MG TABLET PO SCH (08:57)
[2019-11-22] MEDS: ENOXAPARIN 30MG/0.3ML SYR SUBCUT SCH (08:57)
[2019-11-22] MEDS: CARVEDILOL 3.125 MG TABLET PO SCH (08:57)
[2019-11-22] MEDS: ONDANSETRON HCL 4MG TABLET PO PRN (09:21)
[2019-11-22 11:14] VITALS: BP 128/60
[2019-11-22 16:50] VITALS: BP 138/68
[2019-11-22] MEDS: HYDROCODONE/ACETAMINOPHEN 10/325MG TABLET PO PRN (16:50)
== END 2019-11-22 18:56 | disposition home health service (06) | DRG 551 ==
PROVIDERS: ADMIT Physical Medicine & Rehabilitation Spinal Cord Injury Medicine; ATTEND Internal Medicine Nephrology
DX: M48.02 Spinal stenosis, cervical region (principal); G82.50 Quadriplegia, unspecified; Z68.41 Body mass index [BMI] 40.0-44.9, adult; N17.9 Acute kidney failure, unspecified; M48.061 Spinal stenosis, lumbar region without neurogenic claudication; M51.27 Other intervertebral disc displacement, lumbosacral region; M79.7 Fibromyalgia; E11.9 Type 2 diabetes mellitus without complications; E03.9 Hypothyroidism, unspecified; E66.01 Morbid (severe) obesity due to excess calories; E78.5 Hyperlipidemia, unspecified; G40.909 Epilepsy, unspecified, not intractable, without status epilepticus; G89.4 Chronic pain syndrome; I25.10 Atherosclerotic heart disease of native coronary artery without angina pectoris; K44.9 Diaphragmatic hernia without obstruction or gangrene; J44.9 Chronic obstructive pulmonary disease, unspecified; N64.4 Mastodynia; M46.90 Unspecified inflammatory spondylopathy, site unspecified; R29.6 Repeated falls; B19.20 Unspecified viral hepatitis C without hepatic coma; K72.90 Hepatic failure, unspecified without coma; E55.9 Vitamin D deficiency, unspecified; E78.00 Pure hypercholesterolemia, unspecified; F12.90 Cannabis use, unspecified, uncomplicated; F17.210 Nicotine dependence, cigarettes, uncomplicated; I11.0 Hypertensive heart disease with heart failure; I50.9 Heart failure, unspecified; K76.0 Fatty (change of) liver, not elsewhere classified; R53.81 Other malaise; R07.89 Other chest pain; M17.10 Unilateral primary osteoarthritis, unspecified knee; M47.26 Other spondylosis with radiculopathy, lumbar region; M51.16 Intervertebral disc disorders with radiculopathy, lumbar region; R16.0 Hepatomegaly, not elsewhere classified; M51.17 Intervertebral disc disorders with radiculopathy, lumbosacral region; W06.XXXA Fall from bed, initial encounter; Z82.49 Family history of ischemic heart disease and other diseases of the circulatory system; Z86.73 Personal history of transient ischemic attack (TIA), and cerebral infarction without residual deficits; I25.2 Old myocardial infarction; Y93.89 Activity, other specified; Y99.8 Other external cause status; Y92.003 Bedroom of unspecified non-institutional (private) residence as the place of occurrence of the external cause
CPT/HCPCS: 36415; 73560; 76700; 80048; 80053; 81003; 82140; 82306; 82550; 82607; 82728; 82746; 83036; 83540; 83550; 83735; 84100; 84134; 84443; 85025; 86705; 86709; 86803; 87340; 93970; 97110; 97112; 97116; 97140; 97162; 97166; 97530; 97535; J1650; J1885; J3301; J3420; J3490; Q0162

== ENCOUNTER 2020-03-19 11:53 | Inpatient (IN) | payer MEDICARE, MEDICAID ==
[~2020-03-19] VITALS: Ht 157.5 cm; Wt 103.9 kg
[~2020-03-19 11:53] MED LIST changes: -ATOR-2 PO; -CARV3.1242 PO; -METO25TA6 PO
[2020-03-19 14:52] LABS: BASOPHILS % 0.7 % (0.0-2.0); EOSINOPHILS % 2.7 % (0.0-5.0); HEMOGLOBIN. 13.7 g/dL (12.0-16.0); LYMPHOCYTES % 32.6 % (20.0-50.0); MEAN CORPUSCULAR HEMOGLOBIN 28.6 pg (28.0-32.0); MEAN CORPUSCULAR VOLUME 87.6 fL (81.0-99.0); MEAN PLATELET VOLUME 9.7 fl (7.4-10.4); MONOCYTES % 7.3 % (2.0-8.0); NEUTROPHILS % 56.7 % (40.0-76.0); PLATELET 235 x1000/uL (130-400); RED BLOOD CELL COUNT 4.79 mill/uL (4.2-5.4); RED CELL DISTRIBUTION WIDTH 14.7 % (11.6-14.6)
[2020-03-19 15:11] LABS: ETHANOL BLOOD < 10 mg/dL
[2020-03-19 16:04] LABS: CHLORIDE 96 mEq/L (98-107)
[2020-03-19] MEDS ORDERED: ENOXAPARIN 40MG/0.4ML SYR SUBCUT SCH (17:15)
[2020-03-19] MEDS ORDERED: DEXTROSE 50% WATER 50ML SYRINGE IV PRN (17:15)
[2020-03-19] MEDS ORDERED: GUAIFENESIN 200MG/10ML SUGAR FREE UDC PO PRN (17:15)
[2020-03-19] MEDS ORDERED: TRAMADOL 50MG TABLET PO PRN (17:15)
[2020-03-19] MEDS ORDERED: ONDANSETRON HCL 4MG/2ML INJ IV PRN (17:15)
[2020-03-19] MEDS ORDERED: IPRATROPIUM/ALBUTEROL 0.5-3(2.5)MG/3ML NEB NEB PRN (17:15)
[2020-03-19] MEDS ORDERED: KETOROLAC 15MG/ML VIAL IV PRN (17:15)
[2020-03-19] MEDS ORDERED: DOCUSATE SODIUM 100MG CAPSULE PO PRN (17:15)
[2020-03-19] MEDS ORDERED: ACETAMINOPHEN 325MG TABLET PO PRN (17:15)
[2020-03-19] MEDS ORDERED: MAGNESIUM/ALUMINUM HYDROXIDE/SIMETHICONE 30ML UDC PO PRN (17:15)
[2020-03-19] MEDS ORDERED: CLONIDINE 0.1MG TABLET PO PRN (17:15)
[2020-03-19] MEDS ORDERED: NITROGLYCERIN 0.4MG TABLET SL SL PRN (17:15)
[2020-03-19 20:14] LABS: T4 FREE 1.39 ng/dL (0.76-1.46)
[2020-03-19] MEDS: INSULIN LISPRO 100 UNITS/ML SUBCUT SCH ×2 (21:00→23:26)
[2020-03-19] MEDS: BLOOD SUGAR DIAGNOSTIC STRIP TEST SCH (21:00)
[2020-03-19] MEDS ORDERED: INSULIN GLARGINE UD 100 UNITS/ML SYR SUBCUT SCH (22:00)
[2020-03-19 22:30] VITALS: BP 150/93
[2020-03-19 23:00] VITALS: BP 150/93
[2020-03-19] MEDS: LEVETIRACETAM 500MG TABLET PO SCH (23:27)
[2020-03-19] MEDS: ZOLPIDEM TARTRATE 5MG TABLET PO PRN (23:27)
[2020-03-19] MEDS: ASCORBIC ACID 500 MG TABLET PO SCH (23:27)
[2020-03-20 00:14] VITALS: BP 133/79
[2020-03-20 04:00] VITALS: BP 129/63
[2020-03-20] MEDS: BLOOD SUGAR DIAGNOSTIC STRIP TEST SCH ×4 (06:43→20:46)
[2020-03-20] MEDS: LEVOTHYROXINE SODIUM 112MCG TABLET PO SCH (06:43)
[2020-03-20] MEDS: INSULIN LISPRO 100 UNITS/ML SUBCUT SCH ×4 (06:43→21:24)
[2020-03-20 06:59] LABS: BASOPHILS % 0.6 % (0.0-2.0); EOSINOPHILS % 2.7 % (0.0-5.0); HEMATOCRIT. 37.5 % (36.0-48.0); HEMOGLOBIN. 12.3 g/dL (12.0-16.0); LYMPHOCYTES % 44.3 % (20.0-50.0); MEAN CORPUSCULAR HEMOGLOBIN 28.4 pg (28.0-32.0); MEAN CORPUSCULAR VOLUME 86.6 fL (81.0-99.0); MEAN PLATELET VOLUME 9.6 fl (7.4-10.4); MONOCYTES % 8.3 % (2.0-8.0); NEUTROPHILS % 44.1 % (40.0-76.0); PLATELET 241 x1000/uL (130-400); RED BLOOD CELL COUNT 4.32 mill/uL (4.2-5.4); RED CELL DISTRIBUTION WIDTH 14.3 % (11.6-14.6)
[2020-03-20 07:17] LABS: CHLORIDE 101 mEq/L (98-107)
[2020-03-20 07:36] LABS: PHOSPHORUS 3.4 mg/dL (2.5-4.9)
[2020-03-20 08:00] VITALS: BP 131/76
[2020-03-20] MEDS: LEVETIRACETAM 500MG TABLET PO SCH ×2 (08:45→20:46)
[2020-03-20] MEDS: ZINC SULFATE 220 MG ( 50 ) CAPSULE PO SCH (08:45)
[2020-03-20] MEDS: ASCORBIC ACID 500 MG TABLET PO SCH ×2 (08:45→20:46)
[2020-03-20] MEDS: PANTOPRAZOLE SODIUM 40 MG/VIAL IV SCH (08:46)
[2020-03-20 12:00] VITALS: BP 162/72
[2020-03-20 16:00] VITALS: BP 133/79
[2020-03-20] MEDS: MONTELUKAST SODIUM 10MG TABLET PO SCH (16:28)
[2020-03-20 20:00] VITALS: BP 133/80
[2020-03-20] MEDS ORDERED: POTASSIUM CHLORIDE 20MEQ TABLET SR PO NR (21:00)
[2020-03-20] MEDS: ZOLPIDEM TARTRATE 5MG TABLET PO PRN (21:12)
[2020-03-20] MEDS ORDERED: DEXT 5%/LACTATED RINGERS 1,000 ML IV SCH (22:15)
[2020-03-20] MEDS: NYSTATIN POWDER 15GM TOP SCH (23:28)
[2020-03-20] MEDS ORDERED: INSULIN GLARGINE UD 100 UNITS/ML SYR SUBCUT NR (23:30)
[2020-03-21] VITALS (55 sets, daily range): BP systolic 76–155; BP diastolic 35–92
[2020-03-21] MEDS ORDERED: MORPHINE SULFATE 2 MG/ML CPJ (NOT FOR IM USE) IV NR (05:18)
[2020-03-21] MEDS: BLOOD SUGAR DIAGNOSTIC STRIP TEST SCH ×3 (06:03→21:05)
[2020-03-21 06:11] LABS: CLARITY URINE CLEAR (CLEAR); COLOR URINE YELLOW (YELLOW); KETONES URINE TRACE (NEGATIVE); LEUKOCYTE ESTERASE URINE NEGATIVE (NEGATIVE); NITRITE URINE NEGATIVE (NEGATIVE); OCCULT BLOOD URINE NEGATIVE (NEGATIVE); PH URINE 5.5 (4.5-8.0); PROTEIN URINE TRACE (NEGATIVE); SPECIFIC GRAVITY URINE 1.027 (1.005-1.030)
[2020-03-21] MEDS ORDERED: THROMBIN (BOVINE) 5000 UNITS/VIAL TOP ONE (06:16)
[2020-03-21] MEDS ORDERED: BACITRACIN 50,000 UNITS/VIAL ONE (06:17)
[2020-03-21] MEDS: INSULIN LISPRO 100 UNITS/ML SUBCUT SCH ×4 (06:18→21:11)
[2020-03-21 06:22] LABS: *BARBITURATES SCREEN URINE NEGATIVE (NEGATIVE); *BENZODIAZEPINES SCREEN URINE NEGATIVE (NEGATIVE)
[2020-03-21 06:23] LABS: *AMPHETAMINES SCREEN URINE NEGATIVE (NEGATIVE); *COCAINE SCREEN URINE NEGATIVE (NEGATIVE); CANNABINOID URINE SCREEN PRESUMTIVE POSITIVE (NEGATIVE); METHADONE URINE SCREEN NEGATIVE (NEGATIVE); OPIATES URINE SCREEN NEGATIVE (NEGATIVE); PHENCYCLIDINE URINE SCREEN NEGATIVE (NEGATIVE)
[2020-03-21] MEDS: LEVOTHYROXINE SODIUM 112MCG TABLET PO SCH (06:28)
[2020-03-21] MEDS ORDERED: ACETAMINOPHEN 500MG TABLET ONE (06:53)
[2020-03-21] MEDS ORDERED: FENTANYL CITRATE/PF 50MCG/ML 2ML VIAL ONE (07:07)
[2020-03-21] MEDS ORDERED: ROCURONIUM BROMIDE 10MG/ML VIAL 5ML IV ONE (07:07)
[2020-03-21] MEDS ORDERED: PROPOFOL 200MG/20ML VIAL IV ONE ×2 (07:08→09:52)
[2020-03-21] MEDS ORDERED: LIDOCAINE HCL/PF 1% 10 MG/ML 5ML VIAL ONE (07:12)
[2020-03-21] MEDS ORDERED: SUCCINYLCHOLINE CHLORIDE 200MG/10ML IV ONE (07:12)
[2020-03-21] MEDS ORDERED: MIDAZOLAM HCL 2 MG/2 ML VIAL ONE (07:15)
[2020-03-21] MEDS: SODIUM CHLORIDE 0.9% 1,000 ML IV SCH ×2 (07:15→14:40)
[2020-03-21] MEDS ORDERED: CLINDAMYCIN 900 MG PREMIX 50 ML IV ONE (07:29)
[2020-03-21] MEDS ORDERED: ONDANSETRON HCL 4MG/2ML INJ ONE (07:35)
[2020-03-21] MEDS ORDERED: METOCLOPRAMIDE HCL 10MG/2ML VIAL ONE (07:35)
[2020-03-21] MEDS ORDERED: INSULIN REGULAR (HUMULIN R) 300UNITS/3ML VIAL ONE ×2 (07:36→07:45)
[2020-03-21] MEDS ORDERED: LABETALOL HCL 5MG/ML VIAL 20ML IV ONE (07:53)
[2020-03-21] MEDS ORDERED: GLYCOPYRROLATE 0.2 MG/ML 2ML VIAL ONE ×2 (08:13→09:14)
[2020-03-21] MEDS ORDERED: NEOSTIGMINE METHYLSULFATE 1MG/ML 10 ML VIAL ONE (08:13)
[2020-03-21] MEDS ORDERED: HYDROMORPHONE HCL/PF 2MG/ML CPJ IV PRN (08:15)
[2020-03-21] MEDS ORDERED: FENTANYL CITRATE/PF 50MCG/ML 2ML VIAL IV PRN (08:15)
[2020-03-21] MEDS ORDERED: PHENYLEPHRINE HCL 10 MG/ML 1ML (IV VIAL) IV ONE (08:30)
[2020-03-21] MEDS ORDERED: SODIUM CHLORIDE 0.9% 10ML VIAL ONE (08:30)
[2020-03-21] MEDS ORDERED: HYDROMORPHONE HCL/PF 2MG/ML (OR) ONE (08:43)
[2020-03-21] MEDS: ZINC SULFATE 220 MG ( 50 ) CAPSULE PO SCH (09:00)
[2020-03-21] MEDS: PANTOPRAZOLE SODIUM 40 MG/VIAL IV SCH (09:00)
[2020-03-21] MEDS: LEVETIRACETAM 500MG TABLET PO SCH (09:00)
[2020-03-21] MEDS: NYSTATIN POWDER 15GM TOP SCH ×3 (09:00→16:50)
[2020-03-21] MEDS: ASCORBIC ACID 500 MG TABLET PO SCH ×2 (09:00→20:49)
[2020-03-21] MEDS ORDERED: ATROPINE SULFATE 1MG/10ML SYR ONE (09:38)
[2020-03-21] MEDS ORDERED: FUROSEMIDE 40MG/4ML VIAL ONE (09:43)
[2020-03-21] MEDS ORDERED: MIDAZOLAM HCL 5 MG/5 ML VIAL ONE (09:49)
[2020-03-21] MEDS ORDERED: DOPAMINE 400MG/250ML PREMIX 250 ML IV ONE (09:53)
[2020-03-21] MEDS ORDERED: CLINDAMYCIN 600 MG in DEXTROSE 5% WATER 50 ML IV SCH (10:00)
[2020-03-21] MEDS ORDERED: ALBUMIN HUMAN 12.5G/250ML (5%) IV ONE ×2 (10:15→10:28)
[2020-03-21] MEDS: HYDROMORPHONE HCL/PF 2MG/ML CPJ IV PRN ×3 (11:46→23:46)
[2020-03-21] MEDS: DEXAMETHASONE 4MG/ML 1ML VIAL IV SCH ×3 (11:47→23:39)
[2020-03-21] MEDS: CLINDAMYCIN 600 MG in DEXTROSE 5% WATER 50 ML IV SCH ×2 (13:37→21:10)
[2020-03-21] MEDS ORDERED: MIDAZOLAM HCL 5 MG/5 ML VIAL IV NR (13:45)
[2020-03-21] MEDS ORDERED: DOPAMINE 400MG/250ML PREMIX 250 ML IV SCH (13:45)
[2020-03-21] MEDS ORDERED: ALBUMIN HUMAN 12.5G/250ML (5%) IV SCH (13:45)
[2020-03-21] MEDS: NICARDIPINE 100 MG in SODIUM CHLORIDE 0.9% 60 ML IV PRN (14:54)
[2020-03-21] MEDS: MONTELUKAST SODIUM 10MG TABLET PO SCH (16:50)
[2020-03-21] MEDS: INSULIN GLARGINE UD 100 UNITS/ML SYR SUBCUT SCH (21:11)
[2020-03-21] MEDS: LEVETIRACETAM 500MG PREMIX 100 ML IV SCH (23:39)
[2020-03-22] VITALS (75 sets, daily range): BP systolic 0–162; BP diastolic 0–173
[2020-03-22] MEDS: HYDROMORPHONE HCL/PF 2MG/ML CPJ IV PRN ×3 (03:33→21:32)
[2020-03-22 04:59] LABS: BASOPHILS % 0.3 % (0.0-2.0); HEMATOCRIT. 35.3 % (36.0-48.0); HEMOGLOBIN. 11.6 g/dL (12.0-16.0); LYMPHOCYTES % 8.7 % (20.0-50.0); MEAN CORPUSCULAR HEMOGLOBIN 28.6 pg (28.0-32.0); MEAN CORPUSCULAR VOLUME 87.3 fL (81.0-99.0); MEAN PLATELET VOLUME 9.6 fl (7.4-10.4); MONOCYTES % 3.1 % (2.0-8.0); NEUTROPHILS % 87.9 % (40.0-76.0); PLATELET 196 x1000/uL (130-400); RED BLOOD CELL COUNT 4.04 mill/uL (4.2-5.4); RED CELL DISTRIBUTION WIDTH 14.8 % (11.6-14.6)
[2020-03-22 05:04] LABS: CHLORIDE 108 mEq/L (98-107)
[2020-03-22] MEDS: CLINDAMYCIN 600 MG in DEXTROSE 5% WATER 50 ML IV SCH ×3 (05:13→23:54)
[2020-03-22] MEDS: SODIUM CHLORIDE 0.9% 1,000 ML IV SCH (05:13)
[2020-03-22] MEDS: DEXAMETHASONE 4MG/ML 1ML VIAL IV SCH ×2 (05:13→12:38)
[2020-03-22] MEDS: LEVOTHYROXINE SODIUM 112MCG TABLET PO SCH (06:14)
[2020-03-22] MEDS: BLOOD SUGAR DIAGNOSTIC STRIP TEST SCH ×5 (06:14→21:36)
[2020-03-22] MEDS: INSULIN LISPRO 100 UNITS/ML SUBCUT SCH ×4 (06:18→21:36)
[2020-03-22] MEDS: NICARDIPINE 100 MG in SODIUM CHLORIDE 0.9% 60 ML IV PRN (06:18)
[2020-03-22] MEDS: PANTOPRAZOLE SODIUM 40 MG/VIAL IV SCH (08:40)
[2020-03-22] MEDS: LEVETIRACETAM 500MG PREMIX 100 ML IV SCH ×2 (08:41→22:28)
[2020-03-22] MEDS: ZINC SULFATE 220 MG ( 50 ) CAPSULE PO SCH (08:41)
[2020-03-22] MEDS: ASCORBIC ACID 500 MG TABLET PO SCH ×2 (08:41→21:32)
[2020-03-22] MEDS: NYSTATIN POWDER 15GM TOP SCH ×3 (09:00→18:23)
[2020-03-22] MEDS ORDERED: MAGNESIUM 1 G PREMIX 100 ML IV SCH (10:00)
[2020-03-22] MEDS: ACETAMINOPHEN 325MG TABLET PO PRN ×2 (17:11→21:43)
[2020-03-22] MEDS: MONTELUKAST SODIUM 10MG TABLET PO SCH (18:21)
[2020-03-22] MEDS ORDERED: CLINDAMYCIN 600MG PREMIX 50 ML IV SCH (22:00)
[2020-03-22] MEDS: INSULIN GLARGINE UD 100 UNITS/ML SYR SUBCUT SCH (22:07)
[2020-03-23] VITALS: BP 125/60
[2020-03-23 04:00] VITALS: BP 128/56
[2020-03-23] MEDS: LEVOTHYROXINE SODIUM 112MCG TABLET PO SCH (06:19)
[2020-03-23] MEDS: BLOOD SUGAR DIAGNOSTIC STRIP TEST SCH ×4 (06:19→21:27)
[2020-03-23] MEDS: INSULIN LISPRO 100 UNITS/ML SUBCUT SCH ×4 (06:19→21:27)
[2020-03-23] MEDS: CLINDAMYCIN 600 MG in DEXTROSE 5% WATER 50 ML IV SCH (06:19)
[2020-03-23 08:00] VITALS: BP 128/63
[2020-03-23] MEDS: PANTOPRAZOLE SODIUM 40 MG/VIAL IV SCH (09:59)
[2020-03-23] MEDS: LEVETIRACETAM 500MG PREMIX 100 ML IV SCH ×2 (09:59→21:24)
[2020-03-23] MEDS: ASCORBIC ACID 500 MG TABLET PO SCH ×2 (09:59→21:24)
[2020-03-23] MEDS: ZINC SULFATE 220 MG ( 50 ) CAPSULE PO SCH (09:59)
[2020-03-23 11:34] VITALS: BP 123/61
[2020-03-23] MEDS: HYDROMORPHONE HCL/PF 2MG/ML CPJ IV PRN ×2 (11:39→21:24)
[2020-03-23] MEDS: NYSTATIN POWDER 15GM TOP SCH ×3 (12:20→16:57)
[2020-03-23] MEDS: SODIUM CHLORIDE 0.9% 1,000 ML IV SCH (12:21)
[2020-03-23] MEDS: ACETAMINOPHEN 325MG TABLET PO PRN (12:36)
[2020-03-23] MEDS ORDERED: MAGNESIUM 2 G PREMIX 50 ML IV SCH (15:00)
[2020-03-23 16:00] VITALS: BP 129/65
[2020-03-23 16:04] LABS: CHLORIDE 106 mEq/L (98-107)
[2020-03-23] MEDS: MONTELUKAST SODIUM 10MG TABLET PO SCH (16:54)
[2020-03-23 20:00] VITALS: BP 126/68
[2020-03-23] MEDS: INSULIN GLARGINE UD 100 UNITS/ML SYR SUBCUT SCH (21:35)
[2020-03-24] VITALS: BP 131/70
[2020-03-24] MEDS: ZOLPIDEM TARTRATE 5MG TABLET PO PRN (01:07)
[2020-03-24 04:00] VITALS: BP 110/59
[2020-03-24 05:50] LABS: BASOPHILS % 0.4 % (0.0-2.0); EOSINOPHILS % 1.4 % (0.0-5.0); HEMATOCRIT. 36.4 % (36.0-48.0); LYMPHOCYTES % 35.8 % (20.0-50.0); MEAN CORPUSCULAR HEMOGLOBIN 28.6 pg (28.0-32.0); MEAN CORPUSCULAR VOLUME 87.1 fL (81.0-99.0); MEAN PLATELET VOLUME 9.2 fl (7.4-10.4); MONOCYTES % 7.6 % (2.0-8.0); NEUTROPHILS % 54.8 % (40.0-76.0); PLATELET 266 x1000/uL (130-400); RED BLOOD CELL COUNT 4.18 mill/uL (4.2-5.4); RED CELL DISTRIBUTION WIDTH 15.2 % (11.6-14.6)
[2020-03-24] MEDS: BLOOD SUGAR DIAGNOSTIC STRIP TEST SCH ×2 (06:39→12:40)
[2020-03-24] MEDS: INSULIN LISPRO 100 UNITS/ML SUBCUT SCH ×2 (06:40→13:31)
[2020-03-24] MEDS: LEVOTHYROXINE SODIUM 112MCG TABLET PO SCH (06:56)
[2020-03-24 07:41] LABS: CHLORIDE 108 mEq/L (98-107)
[2020-03-24 08:00] VITALS: BP 105/66
[2020-03-24] MEDS: POTASSIUM CHLORIDE 20MEQ/PACKET PO NR ×2 (08:15→09:53)
[2020-03-24] MEDS: PANTOPRAZOLE SODIUM 40 MG/VIAL IV SCH (09:53)
[2020-03-24] MEDS: LEVETIRACETAM 500MG PREMIX 100 ML IV SCH (09:54)
[2020-03-24] MEDS: NYSTATIN POWDER 15GM TOP SCH ×2 (09:54→12:29)
[2020-03-24] MEDS: ZINC SULFATE 220 MG ( 50 ) CAPSULE PO SCH (09:54)
[2020-03-24] MEDS: ASCORBIC ACID 500 MG TABLET PO SCH (09:54)
[2020-03-24] MEDS: HYDROMORPHONE HCL/PF 2MG/ML CPJ IV PRN (10:19)
[2020-03-24] MEDS: SODIUM CHLORIDE 0.9% 1,000 ML IV SCH ×2 (10:19→13:36)
[2020-03-24] MEDS: LACTULOSE 20G/30ML UDC PO SCH ×2 (11:07→12:42)
[2020-03-24 12:00] VITALS: BP 124/82
[2020-03-24] MEDS ORDERED: POTASSIUM CHLORIDE 20MEQ TABLET SR PO NR (12:15)
[2020-03-24] MEDS: ACETAMINOPHEN 325MG TABLET PO PRN (12:22)
[2020-03-24 15:40] VITALS: BP 124/82
[2020-03-24 16:00] VITALS: BP 143/78
[2020-03-24] MEDS ORDERED: DOCUSATE SODIUM 100MG CAPSULE PO SCH (17:00)
[2020-03-24] MEDS ORDERED: POLYETHYLENE GLYCOL 3350 (17GM) 1 DOSE PACK PO SCH (21:00)
[2020-03-25] MEDS ORDERED: FAMOTIDINE 20MG TABLET PO SCH (09:00)
== END 2020-03-24 16:10 | DRG 471 ==
LOC: ER 11:53 → 8WST 15:45 → EDBEDREQ 15:48 → EDBEDREQTM 15:49 → SUPCPDRO 17:11 → ENRESERV 21:37 → MICUNO 03-21 11:34 → MICUSO 03-22 05:00 → 8WST 03-22 16:37
PROVIDERS: ADMIT Internal Medicine; ATTEND Internal Medicine
PROC: 0RG10AJ Fusion of Cervical Vertebral Joint with Interbody Fusion Device, Posterior Approach, Anterior Column, Open Approach (ICD-10-PCS; principal; 2020-03-21)
PROC: 0RB30ZZ Excision of Cervical Vertebral Disc, Open Approach (ICD-10-PCS; 2020-03-21)
PROC: BR101ZZ Fluoroscopy of Cervical Spine using Low Osmolar Contrast (ICD-10-PCS; 2020-03-21)
DX: M48.02 Spinal stenosis, cervical region (principal); E11.00 Type 2 diabetes mellitus with hyperosmolarity without nonketotic hyperglycemic-hyperosmolar coma (NKHHC); G82.50 Quadriplegia, unspecified; M50.021 Cervical disc disorder at C4-C5 level with myelopathy; E87.1 Hypo-osmolality and hyponatremia; M47.12 Other spondylosis with myelopathy, cervical region; Z68.41 Body mass index [BMI] 40.0-44.9, adult; E44.0 Moderate protein-calorie malnutrition; E03.9 Hypothyroidism, unspecified; E11.65 Type 2 diabetes mellitus with hyperglycemia; E66.9 Obesity, unspecified; E83.42 Hypomagnesemia; M48.061 Spinal stenosis, lumbar region without neurogenic claudication; E87.6 Hypokalemia; M79.7 Fibromyalgia; M85.80 Other specified disorders of bone density and structure, unspecified site; E66.01 Morbid (severe) obesity due to excess calories; E78.5 Hyperlipidemia, unspecified; F12.90 Cannabis use, unspecified, uncomplicated; G40.909 Epilepsy, unspecified, not intractable, without status epilepticus; G83.81 Brown-Sequard syndrome; G89.4 Chronic pain syndrome; I25.10 Atherosclerotic heart disease of native coronary artery without angina pectoris; J44.9 Chronic obstructive pulmonary disease, unspecified; K44.9 Diaphragmatic hernia without obstruction or gangrene; K76.0 Fatty (change of) liver, not elsewhere classified; R13.10 Dysphagia, unspecified; R29.6 Repeated falls; Z20.828 Contact with and (suspected) exposure to other viral communicable diseases; N64.4 Mastodynia; G90.8 Other disorders of autonomic nervous system; Z82.49 Family history of ischemic heart disease and other diseases of the circulatory system; Z83.3 Family history of diabetes mellitus; Z86.73 Personal history of transient ischemic attack (TIA), and cerebral infarction without residual deficits; Z98.1 Arthrodesis status; Z79.84 Long term (current) use of oral hypoglycemic drugs; I25.2 Old myocardial infarction; Z90.89 Acquired absence of other organs; Z79.899 Other long term (current) drug therapy; I10 Essential (primary) hypertension
CPT/HCPCS: 36415; 70551; 72040; 72141; 76000; 80048; 80053; 80061; 80305; 80320; 81003; 82310; 82962; 83036; 83735; 84100; 84439; 84443; 85025; 86850; 86900; 87426; 88304; 88311; 92610; 93005; 93970; 95863; 95925; 95926; 95928; 95929; 96372; 97116; 97162; 97166; 99285; C1713; C1893; C9113; J0330; J0461; J1100; J1170; J1265; J1650; J1815; J1940; J1953; J2250; J2370; J2405; J2704; J2710; J2765; J3010; J3475; J3490; J7030; J7040; J7050; J7060; L0172; P9041; G0480

== ENCOUNTER 2020-04-16 12:33 | Emergency (ER) | payer MEDICARE, MEDICAID ==
[~2020-04-16] VITALS: Ht 160 cm; Wt 102.0 kg
[~2020-04-16 12:33] MED LIST changes: -NEOM1PAC2 TP; -NICO-786 TD
[2020-04-16] MEDS: OXYCODONE HCL/ACETAMINOPHEN 5/325MG TABLET PO ONE (14:05)
[2020-04-16 16:50] VITALS: BP 130/68
== END 2020-04-16 16:50 | disposition home or self-care (01) ==
LOC: ER 12:33
DX: M25.512 Pain in left shoulder (principal); I10 Essential (primary) hypertension; E11.9 Type 2 diabetes mellitus without complications; Z79.84 Long term (current) use of oral hypoglycemic drugs; Z98.890 Other specified postprocedural states; Z86.73 Personal history of transient ischemic attack (TIA), and cerebral infarction without residual deficits; Z88.5 Allergy status to narcotic agent; Z88.0 Allergy status to penicillin; Z88.2 Allergy status to sulfonamides; Z88.6 Allergy status to analgesic agent; W06.XXXA Fall from bed, initial encounter; Y93.89 Activity, other specified; Y92.013 Bedroom of single-family (private) house as the place of occurrence of the external cause
CPT/HCPCS: 73030; 99283

== ENCOUNTER 2020-05-16 12:10 | Emergency (ER) | payer MEDICARE, MEDICAID ==
[~2020-05-16] VITALS: Ht 157.5 cm; Wt 100.0 kg
[2020-05-16 14:17] VITALS: BP 140/80
== END 2020-05-16 14:18 | disposition home or self-care (01) ==
LOC: ER 12:10
DX: Z76.0 Encounter for issue of repeat prescription (principal); R11.2 Nausea with vomiting, unspecified; G40.909 Epilepsy, unspecified, not intractable, without status epilepticus; Z88.0 Allergy status to penicillin; Z88.5 Allergy status to narcotic agent; Z88.2 Allergy status to sulfonamides; Z88.6 Allergy status to analgesic agent
CPT/HCPCS: 82962; 93005; 99283

== ENCOUNTER 2021-02-22 19:28 | Emergency (ER) | payer MEDICARE, OTHER ==
[~2021-02-22] VITALS: Ht 160 cm; Wt 92.0 kg
[~2021-02-22 19:28] MED LIST changes: +ACET-2502 PO; -ACET650T7 PO; -FLUC150T41 PO; +FLUC150T5 PO; -PANT40TA4 MT; +PANT40TA51 MT; +VENL75CA3 MT; -VENL75CA55 MT
[2021-02-22 21:23] LABS: BASOPHILS % 0.3 % (0.0-2.0); EOSINOPHILS % 2.1 % (0.0-5.0); HEMATOCRIT. 36.4 % (36.0-48.0); HEMOGLOBIN. 11.9 g/dL (12.0-16.0); MEAN CORPUSCULAR HEMOGLOBIN 30.5 pg (28.0-32.0); MEAN CORPUSCULAR VOLUME 93.2 fL (81.0-99.0); MEAN PLATELET VOLUME 8.3 fl (7.4-10.4); MONOCYTES % 7.6 % (2.0-8.0); PLATELET 228 x1000/uL (130-400); RED BLOOD CELL COUNT 3.91 mill/uL (4.2-5.4); RED CELL DISTRIBUTION WIDTH 16.2 % (11.6-14.6)
[2021-02-22 21:30] LABS: CHLORIDE 108 mEq/L (98-107)
[2021-02-22] MEDS: QUETIAPINE FUMARATE 50MG TABLET PO SCH (21:30)
[2021-02-22 21:34] LABS: ETHANOL BLOOD < 10 mg/dL
[2021-02-22 22:55] LABS: CLARITY URINE CLEAR (CLEAR); COLOR URINE YELLOW (YELLOW); KETONES URINE NEGATIVE (NEGATIVE); LEUKOCYTE ESTERASE URINE NEGATIVE (NEGATIVE); NITRITE URINE NEGATIVE (NEGATIVE); OCCULT BLOOD URINE NEGATIVE (NEGATIVE); PROTEIN URINE NEGATIVE (NEGATIVE); SPECIFIC GRAVITY URINE 1.014 (1.005-1.030)
[2021-02-22 23:05] LABS: *AMPHETAMINES SCREEN URINE NEGATIVE (NEGATIVE); *BARBITURATES SCREEN URINE NEGATIVE (NEGATIVE); *BENZODIAZEPINES SCREEN URINE NEGATIVE (NEGATIVE); *COCAINE SCREEN URINE NEGATIVE (NEGATIVE)
[2021-02-22 23:06] LABS: CANNABINOID URINE SCREEN PRESUMTIVE POSITIVE (NEGATIVE); METHADONE URINE SCREEN NEGATIVE (NEGATIVE); OPIATES URINE SCREEN PRESUMTIVE POSITIVE (NEGATIVE); PHENCYCLIDINE URINE SCREEN NEGATIVE (NEGATIVE)
[2021-02-23] MEDS ORDERED: ACETAMINOPHEN 325MG TABLET PO ONE (10:30)
[2021-02-23] MEDS: QUETIAPINE FUMARATE 25MG TABLET PO SCH (10:49)
[2021-02-23] MEDS: DONEPEZIL HCL 5MG TABLET PO SCH (10:50)
[2021-02-23] MEDS ORDERED: LORAZEPAM 1MG TABLET PO ONE (13:45)
[2021-02-23] MEDS: QUETIAPINE FUMARATE 50MG TABLET PO SCH ×2 (20:52→20:53)
[2021-02-24] MEDS ORDERED: ZOLPIDEM TARTRATE 5MG TABLET PO ONE (02:45)
[2021-02-24] MEDS: DONEPEZIL HCL 5MG TABLET PO SCH (09:07)
[2021-02-24] MEDS: QUETIAPINE FUMARATE 25MG TABLET PO SCH (09:07)
[2021-02-24] MEDS: QUETIAPINE FUMARATE 50MG TABLET PO SCH ×2 (21:06→21:07)
[2021-02-25] MEDS: DONEPEZIL HCL 5MG TABLET PO SCH (11:11)
[2021-02-25] MEDS: RISPERIDONE 0.5MG TABLET PO SCH ×2 (11:11→21:19)
[2021-02-25] MEDS: QUETIAPINE FUMARATE 25MG TABLET PO SCH (11:11)
[2021-02-25] MEDS: QUETIAPINE FUMARATE 50MG TABLET PO SCH (21:19)
[2021-02-26] MEDS: DONEPEZIL HCL 5MG TABLET PO SCH ×2 (02:56→21:00)
[2021-02-26] MEDS: QUETIAPINE FUMARATE 25MG TABLET PO SCH (09:43)
[2021-02-26] MEDS: RISPERIDONE 0.5MG TABLET PO SCH (09:43)
[2021-02-26] MEDS: QUETIAPINE FUMARATE 50MG TABLET PO SCH (21:00)
[2021-02-27 04:48] VITALS: BP 103/67
== END 2021-02-27 05:10 ==
LOC: ER 19:28
DX: R45.851 Suicidal ideations (principal); F12.10 Cannabis abuse, uncomplicated; Z20.822 Contact with and (suspected) exposure to COVID-19; Z88.0 Allergy status to penicillin; Z88.2 Allergy status to sulfonamides; Z88.6 Allergy status to analgesic agent; Z88.5 Allergy status to narcotic agent; Z79.899 Other long term (current) drug therapy; Z86.59 Personal history of other mental and behavioral disorders
CPT/HCPCS: 36415; 80053; 80305; 80307; 80320; 80329; 81003; 85025; 99285; C9803; U0005; G0480